=== PATIENT | female | born 1965 | race Caucasian/White ===

== ENCOUNTER 2022-04-11 16:11 | Emergency (ER) | payer MEDICAID ==
[~2022-04-11] VITALS: Ht 157.5 cm; Wt 94.8 kg
[2022-04-11 16:22] VITALS: BP 166/93
--- NOTE | 2022-04-11 16:36 | NUR ---
56 Y/O FEMALE BIB SELF C/O OF RIGHT UPPER THIGH PAIN, RADIATING TO THE RIGHT LEG, RADIATING TO BACK AND BUTTOCKS 7/10 ACHING X 2 WEEKS. DENIES ANY DYSURIA, VAGINAL DISCHARGE, "SWELLING" BY THE INGUINAL AREA. NO SWELLING NOTED. pmh: asthma nka med: advil 40 MIN AGO
--- NOTE | 2022-04-11 16:48 | NUR ---
MERLIN MARTIN AT BEDSIDE FOR EVAL WITH FEMALE PET TECHNOLOGIST
[2022-04-11] MEDS ORDERED: KETOROLAC 30 MG/ML VIAL IM ONE (17:00)
[2022-04-11] MEDS ORDERED: IBUP-2213 PO (17:44)
== END 2022-04-11 18:02 | disposition home or self-care (01) ==
LOC: MED 16:11
DX: M79.18 Myalgia, other site (principal); M54.50 Low back pain, unspecified; J45.909 Unspecified asthma, uncomplicated; R03.0 Elevated blood-pressure reading, without diagnosis of hypertension
CPT/HCPCS: 81002; 81025; 96372; 99283; J1885